=== PATIENT | female | born 1995 | race African-American/Black ===

== ENCOUNTER → 2017-10-13 09:21 | Outpatient (CLI) | payer BC, SELFPAY ==
[2017-10-13 12:36] LABS: Protein, Urine (Random) 189.8 mg/dL (<11.9); Protein:Creat Ratio 2059 mg/g CRE (0-200)
[2017-10-13 12:41] LABS: Albumin, Serum 3.2 g/dL (3.2-5.0); BUN 24 mg/dL (7-18); BUN/Creat Ratio 11.2 RATIO (10-20); Calcium,Total 8.8 mg/dL (8.5-10.1); Chloride 109 mmol/L (98-107); Creatinine, Serum 2.15 mg/dL (0.55-1.02); EST Glomerular Filtration Rate 31 mL/min (>60); Est Glom Filt Rate - Afr Amer 37 mL/min (>60); Glucose 88 mg/dL (74-106); Phosphorus 4.3 mg/dL (2.5-4.9); Potassium 4.4 mmol/L (3.5-5.1); Sodium Level 142 mmol/L (136-145)
[2017-10-13 12:50] LABS: PTHIN 118.9 pg/mL (18.4-80.1)
== END ==
PROVIDERS: Visit Provider Internal Medicine Nephrology
DX: N18.3 Chronic kidney disease, stage 3 (moderate) (principal); N25.81 Secondary hyperparathyroidism of renal origin
CPT/HCPCS: 36415; 80069; 82570; 83970; 84156

== ENCOUNTER → 2017-12-15 11:00 | Outpatient (CLI) | payer BC, SELFPAY ==
[2017-12-15 12:33] LABS: Albumin, Serum 3.3 g/dL (3.2-5.0); BUN 33 mg/dL (7-18); BUN/Creat Ratio 13.4 RATIO (10-20); Calcium,Total 8.8 mg/dL (8.5-10.1); Chloride 109 mmol/L (98-107); Creatinine, Serum 2.46 mg/dL (0.55-1.02); EST Glomerular Filtration Rate 26 mL/min (>60); Est Glom Filt Rate - Afr Amer 32 mL/min (>60); Glucose 89 mg/dL (74-106); Phosphorus 4.3 mg/dL (2.5-4.9); Potassium 4.6 mmol/L (3.5-5.1); Sodium Level 140 mmol/L (136-145)
[2017-12-15 12:34] LABS: Hematocrit 34.4 % (37-47); Hemoglobin 10.7 g/dl (12.0-15.0); Mean Corp Hgb Conc 31.1 g/gl (32-36); Mean Corpuscular Hgb 24.6 pg (27.0-32.0); Mean Corpuscular Volume 79.1 fL (81-99); Mean Platelet Vol. 10.1 fl (6.2-12.0); Platelet Count 380 K/mm3 (150-450); RBC Distribution Width CV 16.4 % (11.6-14.6); RBC Distribution Width SD 46.1 fl (35.1-43.9); Red Blood Count 4.35 M/mm3 (4.2-5.4); White Blood Count 5.4 K/mm3 (4.4-11.0)
[2017-12-15 12:37] LABS: Scan Indicated on CBC? Y/N NO
[2017-12-15 12:46] LABS: Protein, Urine (Random) 297.8 mg/dL (<11.9); Protein:Creat Ratio 1934 mg/g CRE (0-200)
[2017-12-15 13:01] LABS: PTHIN 222.4 pg/mL (18.4-80.1)
== END ==
PROVIDERS: Visit Provider Internal Medicine Nephrology
DX: N18.3 Chronic kidney disease, stage 3 (moderate) (principal); N04.1 Nephrotic syndrome with focal and segmental glomerular lesions; N25.81 Secondary hyperparathyroidism of renal origin
CPT/HCPCS: 36415; 80069; 82570; 83970; 84156; 85027